=== PATIENT | male | born 1990 | race Caucasian/White ===

== ENCOUNTER 2017-08-24 23:37 | Emergency (ER) | payer BC ==
[~2017-08-24] VITALS: Ht 167.6 cm; Wt 82.6 kg
--- NOTE | 2017-08-25 00:12 | ED GENERAL ADULT ---
History of Present Illness General Chief Complaint: Allergy Symptoms Stated Complaint: "ALLERGIC REACTION TO MED,HIVES THROAT TIGHT" Source: patient Exam Limitations: no limitations Vital Signs & Intake/Output Vital Signs & Intake/Output Vital Signs Date Time Temp Pulse Resp B/P B/P Pulse O2 O2 Flow FiO2 Mean Ox Delivery Rate 08/25 0054 98.1 72 18 137/88 97 Room Air 08/25 0007 98 Room Air 08/25 0000 98.1 89 18 145/91 98 Room Air Triage Note: PT TO ED C/O ?ALLERGIC REACTION TO BACTRIM. HAS TAKEN APPROX 8 DOSES FOR SINUS INFECTION. C/O HIVES AND THROAT CLOSING. O2 SAT 98% ON RA. LUNGS CTA, NO WHEEZES. HAS BEEN TAKING BENADRYL ALL DAY WITH NO RELIEF Triage Nurses Notes Reviewed? yes Onset: Abrupt Duration: hour(s): Timing: constant HPI: 27-year-old otherwise healthy male presenting with rash 12 hours. Patient reports that he has been on Bactrim for the past 8 days for sinus infection, last dose 7:00 this morning. Has taken 50 mg of Benadryl 3 doses without relief. Endorses subjective sensation of throat tightness, but no difficulty swallowing. Denies lip/tongue swelling, difficulty swallowing, shortness of breath, chest pain, abdominal pain, nausea, vomiting, diarrhea. No known allergies. (Erica Whitt) Allergies Coded Allergies: Penicillins (Severe, HIVES 08/25/17) sulfamethoxazole (From BACTRIM) (HIVES, THROAT CLOSES 08/24/17) trimethoprim (From BACTRIM) (HIVES, THROAT CLOSES 08/24/17) Reconcile Medications Methylprednisolone. (Medrol) 4 MG TAB.DS.PK 1 DP PO AD rash 6 on day 1 then reduce by one tablet daily until gone (Mikhail LANDRY,Juan C Anderson) Past History Travel History Traveled to [place] past 21 day No Medical History Any Pertinent Medical History? see below for history Renal: nephrolithiasis Surgical History Surgical History: non-contributory Psychosocial History What is your primary language Wallisian Tobacco Use: Quit >30 days ago ETOH Use: occasional use Illicit Drug Use: denies illicit drug use Family History Hx Contributory? No (Erica Whitt) Review of Systems Review of Systems Constitutional: Reports: no symptoms. EENTM: Reports: no symptoms. Respiratory: Reports: no symptoms. Cardiovascular: Reports: no symptoms. GI: Reports: no symptoms. Genitourinary: Reports: no symptoms. Musculoskeletal: Reports: no symptoms. Skin: Reports: see HPI, rash. Neurological/Psychological: Reports: no symptoms. Hematologic/Endocrine: Reports: no symptoms. Immunologic/Allergic: Reports: no symptoms. (Erica Whitt) Physical Exam Physical Exam General Appearance: well developed/nourished, no apparent distress, alert, awake , comfortable Head: atraumatic, normal appearance Eyes: Bilateral: normal appearance. Ears, Nose, Throat: normal ENT inspection, No oropharyngeal edema, no lip/tongue swelling. Neck: full range of motion Respiratory: normal breath sounds, lungs clear Cardiovascular: regular rate/rhythm Gastrointestinal: soft, non-tender Back: normal range of motion Extremities: normal range of motion Neurologic/Psych: awake, alert, oriented x 3, normal gait, normal mood/affect Skin: intact, warm/dry, full-body morbilliform rash, spares the palms, soles, mouth. Core Measures ACS in differential dx? No CVA/TIA Diagnosis: No Sepsis Present: No Sepsis Focused Exam Completed? No (Erica Whitt) Progress Differential Diagnoses I considered the following diagnoses in my evaluation of the patient: [Drug eruption rash versus viral exanthem versus contact dermatitis, low concern for anaphylaxis.] Plan of Care: Current Medications Sig/Caden Start time Last Medication Dose Stop Time Status Admin Famotidine 20 MG ONCE ONE 08/25 29 UNVr 08/25 (Pepcid) 08/25 003 0030 Prednisone 60 MG ONCE ONE 08/25 29 UNVr 08/25 08/25 0031 0030 Patient reports resolution of subjective throat tightness after prednisone and Pepcid. Instructed to continue Benadryl around the clock for the next 24 hours. Given Rx Medrol Dosepak. Instructed to discontinue Bactrim. Patient offered prescription for EpiPen, but declining due to cost, and states that his mom already has one in the household. Will follow up with his PMD. Given checked return precautions. Initial ED EKG: none (Erica Whitt) Departure Departure Disposition: HOME OR SELF CARE Condition: Stable Clinical Impression Primary Impression: Drug eruption Referrals: Jacobo LANDRY,Ayaz Fabian (PCP/Family) Additional Instructions: Take Benadryl around the clock for the next 24 hours. Take Medrol Dosepak as prescribed. Discontinue Bactrim. Follow-up with your primary care provider for reevaluation. Return to the emergency department for any new or worsening symptoms. Departure Forms: Customer Survey General Discharge Information (Erica Whitt) Departure Prescriptions: Current Visit Scripts Methylprednisolone. (Medrol) 1 DP PO AD #1 DP 6 on day 1 then reduce by one tablet daily until gone PA/CATTLE MANAGER Co-Sign Statement Statement: ED Attending supervision documentation- [] I saw and evaluated the patient. I have also reviewed all the pertinent lab results and diagnostic results. I agree with the findings and the plan of care as documented in the PA's/CATTLE MANAGER's documentation. [x] I have reviewed the ED Record and agree with the PA's/CATTLE MANAGER's documentation. [] Additions or exceptions (if any) to the PAs/CATTLE MANAGER's note and plan are summarized below: [] (Mikhail LANDRY,Juan C Anderson) Critical Care Note Critical Care Note Critical Care Time: non-applicable (Erica Whitt)
[2017-08-25] MEDS ORDERED: MEDROL4 M2 PO (00:48)
[2017-08-25 00:54] VITALS: BP 137/88
== END 2017-08-25 00:55 ==
LOC: ERH 23:37
DX: T36.91XA Poisoning by unspecified systemic antibiotic, accidental (unintentional), initial encounter (principal)